=== PATIENT | female | born 1960 | race Caucasian/White ===

== ENCOUNTER → 2018-05-31 15:51 | Outpatient (CLI) | payer OTHER, SELFPAY ==
[2018-06-03 03:07] LABS: QNTFERON TB Mitogen Value > 10.00 IU/mL (.); QNTFERON TB Nil Value 0.05 IU/mL (.); QNTFERON TB1+ Ag Value 0.04 IU/mL (.); QNTFERON TB2+ Ag Value 0.04 IU/mL (.)
[2018-06-05 09:08] LABS: QNTIFERON TB Positive Criteria Negative (Negative)
--- OUTSIDE RECORDS SUMMARY | 2018-08-02 18:32 | XMS RPT_ITS ---
:1960 Author Organization OHIP Care Team Providers Name Role Phone NORBERTO CASTAÑEDA Attending Unavailable Miriam Ladd Attending Unavailable PROVIDER, UNKNOWN Referring Unavailable No, PCP Primary Care Unavailable Bautista Nicole Attending Unavailable PROVIDER, UNKNOWN Referring Unavailable Bautista Nicole Primary Care Unavailable Yareli Gipson Attending Unavailable Yareli Gipson Referring Unavailable Bautista Nicole Primary Care Unavailable Robert Garcia Attending Unavailable PROBLEMS PROBLEMS DATE TYPE CONDITION / CODE ATTENDING STATUS SOURCE 05/31/2018 Unknown M06.09 - Rheumatoid [place], Active [place] arthritis without [facility] rheumatoid factor, [facility] multiple sites / Repository M06.09(ICD-10) 05/31/2018 Unknown Z79.899 - Other long [place], Active [place] term (current) drug [facility] therapy / Hospital Z79.899(ICD-10) Repository 05/31/2018 Unknown M17.0 - Bilateral [place], Active [place] primary [facility] osteoarthritis of Hospital knee / M17.0(ICD-10) Repository 05/31/2018 Unknown M77.12 - Lateral [place], Active [place] epicondylitis, left [facility] elbow / Hospital M77.12(ICD-10) Repository 05/31/2018 Unknown M51.36 - Other [place], Active [place] 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, lumbar Hospital region / Repository M51.36(ICD-10) 11/11/2017 Admitting Other cervical disc [place], Active [facility] Diagnosis disorders, [facility] System unspecified cervical Repository region / M50.80(ICD-10) 11/11/2017 Admitting Spinal stenosis, [place], Active [facility] Diagnosis cervical region / [facility] M48.02(ICD-10) Repository 10/28/2017 Active Radiculopathy, CASTAÑEDA, Active [place] cervical region / [facility] Other M54.12(ICD-10) [place] Repository 10/24/2017 Admitting Pain in left [place], Active [facility] Diagnosis shoulder / [facility] M25.512(ICD-10) Repository 10/24/2017 Admitting Other chronic pain / [place], Active [facility] Diagnosis G89.29(ICD-10) [facility] Repository 10/24/2017 Admitting Elevated [place], Active [facility] Diagnosis blood-pressure [facility] reading, w/o Repository diagnosis of htn / R03.0(ICD-10) 10/24/2017 Admitting Muscle spasm of back [place], Active [facility] Diagnosis / M62.830(ICD-10) [facility] Repository 10/24/2017 Admitting Overexertion from [place], Active [facility] Diagnosis repetitive [facility] movements, initial Repository encounter / X50.3XXA(ICD-10) 10/24/2017 Admitting Allergy status to [place], Active [facility] Diagnosis narcotic agent [facility] status / Repository Z88.5(ICD-10) PROCEDURES PROCEDURES No Procedure Records FoundRESULTS RESULTS QUANTIFERON TB-GOLD+ Collected: 05/31/2018 Status: F Source: [place] 4:05 PM [facility] REPOSITORY TYPE CODE TESTS RESULT OUT OF RANGE REFERENCE UNITS LAB L3400.8025 . Normal QFT TB Comment GOLD Result Comment: The QuantiFERON-TB Gold Plus result is determined by subtracting the Nil value from either TB antigen (Ag) tube. The mitogen tube serves as a control for the test. LAB L3400.8035 . IU/mL Normal QFT TB1+ AG 0.04 [facility] LAB L3400.8045 . IU/mL Normal QFT TB2+ AG 0.04 [facility] LAB L3400.8055 . IU/mL Normal QFT NIL VALUE 0.05 LAB L3400.8065 . IU/mL Normal QFT MITOGEN > 10.00 [facility] LAB L3400.8075 Negative Normal QFT TB POS Negative CRIT Result Comment: The specimen received for QuantiFERON testing was incubated by the ordering institution. Specific procedures outlined in our Directory of Services and in the package insert for the QuantiFERON Gold (In Tube) test must be followed to enable for proper stimulation of cells for the production of interferon gamma. Performed at: - [facility] [id number] Director Of Loss Prevention: Anam Heath PhD, Phone: [phone] Performed By: #### L3400.8000 #### [facility] (refer to report for specific site) refer to report for address and phone number CBC-COMPLETE BLOOD CNT Collected: 12/17/2017 Status: F Source: [place] NO DIFF 8:40 AM [facility] REPOSITORY Order Comment: ROOM 102 TYPE CODE TESTS RESULT OUT OF RANGE REFERENCE UNITS LAB L100.1000 4.4-11.0 K/mm3 High WBC 14.7 LAB L100.1200 4.2-5.4 M/mm3 Normal RBC 4.24 LAB L100.1300 12.0-15.0 g/dl Normal HGB 13.3 LAB L100.1400 37-47 % Normal HCT 40.7 LAB L100.1500 81-99 fL Normal MCV 96.0 LAB L100.1600 27.0-32.0 pg Normal MCH 31.4 LAB L100.1700 32-36 g/gl Normal MCHC 32.7 LAB L100.1810 11.6-14.6 % Normal RDW CV 13.8 LAB L100.1820 35.1-43.9 fl High RDW SD 48.2 LAB L100.1900 150-450 K/mm3 Normal PLT 167 LAB L100.2000 6.2-12.0 fl Normal MPV 11.3 Performed By: #### L100.0500 #### [facility] [address] [place], [address] MRI SPINE CERVICAL Observed: 11/11/2017 Status: F Source: [place] W/O CONTRAST 10:59 AM SYSTEM REPOSITORY Patient Name: SHAUNA POTTS MRI Exam Date/Time 11/11/2017 10:51:20 EDT Exam MRI Spine Cervical w/o Contrast Ordering Physician MD NICOLE STEPHEN B Accession Number [id number] CPT4 Codes 88215 () Reason For Exam Radiculopathy, cervical region Report Examination: MRI cervical spine Clinical Indication: Radiculopathy, cervical region Comparison: None Findings: Multiplanar multisequence MRI images were obtained through the cervical spine without intravenous gadolinium. The cervical spine demonstrates minimal 2 mm degenerative retrolisthesis L2-L3. There is straightening of the normal lordosis. The cervical spine demonstrates grossly normal signal intensity. Vertebral and disc heights appear grossly maintained. There is suggestion of trace increased T2 signal at C2-C3, and C6-C7 concerning for slight developing myelomalacia. Craniocervical and atlantoaxial articulations are within normal limits. C2-C3: There is left paracentral 3 mm disc protrusion with small endplate osteophytes and mild retrolisthesis. Finding causes moderate left-sided cord compression and spinal canal stenosis. Minimal left neural foraminal narrowing from slight uncovertebral hypertrophy. C3-C4: Small right-sided disc bulge with uncovertebral hypertrophy. Right-sided facet hypertrophy. Disc contacts mildly flattening the ventral cord. Mild spinal canal stenosis. Moderate right neural foraminal narrowing. C4-C5: Moderate size posterior disc osteophyte complex with slightly more focal central 3 mm disc protrusion causes moderate cord compression and spinal canal stenosis. Mild neural foraminal narrowing. Slight facet and uncovertebral hypertrophy. C5-C6: Tiny central disc protrusion, 2 mm contacts but does not significantly deform the cord. Mild spinal canal stenosis. Mild neural foraminal narrowing. C6-C7: Left lateral recess 4 mm disc protrusion superimposed on disc bulge and small endplate osteophytes. There is moderate left-sided cord compression with moderate to severe left-sided spinal canal stenosis. Mild left and moderate right neural foraminal narrowing. C7-T1: No gross disc abnormality or spinal canal/neuroforaminal stenosis. Impression: 1. Slight retrolisthesis C2-C3. 2. Moderate discogenic and mild facet hypertrophic degenerative changes with multilevel disc bulge, endplate osteophytes and more focal small to moderate-sized disc herniations on the left C2-C3, centrally at C4-C5 and C5-C6 and on the left C6-C7. Findings cause moderate cord compression C2-C3 and C6-C7 with associated moderate to severe spinal canal stenosis. Multilevel neuroforaminal narrowing as above. Report Dictated on Workstation: [id number] Final Dictated: 11/11/2017 10:59 am Dictating Physician: MD SALMON ANTHONY J Signed Date and Time: 11/11/2017 11:07 am Signed by: MD SALMON ANTHONY J Transcribed Date and Time: 11/11/2017 10:59 ED NOTE Observed: 10/28/2017 Status: COMPLETED Source: [place] 9:30 AM [facility] REPOSITORY HNO ID: [id number] Author: Alessandra (Rn) JUAN ALBERTO Maher Service: (none) Author Type: Registered Nurse Type: ED Notes Filed: 10/28/2017 10:16 AM Note Text: Discharge instructions given via teach back, verbalized good understanding. D/C v/s done. Pt states some pain relief with medication. Home with daughters. EKG Observed: 10/28/2017 Status: F Source: [place] 7:57 AM [facility] OTHER [place] REPOSITORY NAME : SHAUNA POTTS PID : [id number] : 1960 Gender : Female Race : ORD : [id number] Procedure Date : Oct 28 2017 07:57:26 Edit Date : Oct 29 2017 08:51:24 Diagnosis:NORMAL SINUS RHYTHM NORMAL ECG NO PREVIOUS ECGS AVAILABLE Confirmed by PRETTY COSTA D.O. ([id number]) on 10/29/2017 8:51:17 AM Ventricular Rate : 72 BPM Atrial Rate : 72 BPM P-R Interval : 156 ms QRS Duration : 90 ms Q-T Interval : 392 ms QTC Calculation(Bezet) : 429 ms P [place] : 68 degrees R [place] : 44 degrees T [place] : 35 degrees Test Reason : Chest Pain Location : 1 : ER 9 Overread By : PRETTY COSTA D.O. Edited By : PRETTY COSTA D.O. Referred By : , Acquired by : JUANCARLOS HENDRIX Collected: 10/28/2017 Status: F Source: [place] 7:45 AM [facility] REPOSITORY TYPE CODE TESTS RESULT OUT OF RANGE REFERENCE UNITS LAB PSEC 9.7-13.0 sec PT Sec 10.7 LAB INR 0.9-1.3 PT INR 1.0 Result Comment: Vitamin K Antagonist (VKA) Therapeutic Range: INR 2 to 3 (Target INR of 2.5) Note: For patients treated with VKA drugs, such as warfarin, the [place] [employer] 2012 Guideline recommends a therapeutic INR range of 2 to 3 (target INR of 2.5). This recommendation includes high-risk patients with antiphospholipid syndrome with previous arterial or venous thromboembolism, current-generation mechanical or bioprosthetic aortic heart valve replacement. Note: Patients with mechanical aortic valve replacement and additional risk factors for thromboembolic events (atrial fibrillation, previous thromboembolism, LV dysfunction, hypercoagulable conditions) or an older generation mechanical AVR (i.e., ball in-Cage) or any mechanical MVR should have a INR therapeutic range of 2.5 to 3.5 (target INR of 3). Martin GH, et al. Chest 2012, 141:7S-47S Drew RA, et al. JAC 2017, 70: 252-289 Performed By: #### PT, PTT, CBCDIF, CMP, CRP, MG1 #### [facility] [address] [place] [address] APTT Collected: 10/28/2017 Status: F Source: [place] 7:45 AM [facility] REPOSITORY TYPE CODE TESTS RESULT OUT OF RANGE REFERENCE UNITS LAB APTT 23.0-32.4 sec APTT 26.1 Result Comment: Unfractionated Heparin Therapeutic Ranges: Standard Heparin Nomogram: 53 to 78 seconds (anti-Xa level of 0.3 to 0.7 U/ml) Low Dose/ACS Nomogram: 49 to 67 seconds (anti-Xa level of 0.2 to 0.5 U/ml) Stroke Treatment Nomogram: 49 to 67 seconds (anti-Xa level of 0.2 to 0.5 U/ml) Note: The APTT therapeutic range has been determined for the current lot of laboratory APTT reagent in use throughout the [facility]. Performed By: #### PT, PTT, CBCDIF, CMP, CRP, MG1 #### [facility] [address] [place] [address] CBC AND DIFFERENTIAL Collected: 10/28/2017 Status: F Source: [place] 7:45 AM [facility] OTHER CAMPUS REPOSITORY TYPE CODE TESTS RESULT OUT OF REFERENCE UNITS RANGE LAB WBC 3.70-11.00 k/uL WBC 9.80 LAB RBC 3.90-5.20 m/uL RBC 4.45 LAB HGB 11.5-15.5 g/dL Hemoglobin 14.3 LAB HCT 36.0-46.0 % Hematocrit 41.2 LAB MCV 80.0-100.0 fL MCV 92.6 LAB MCH 26.0-34.0 pG MCH 32.1 LAB MCHC 30.5-36.0 g/dL MCHC 34.7 LAB RDWCV 11.5-15.0 % RDW-CV 13.6 LAB PLTCT 150-400 k/uL Platelet Count 275 LAB MPV 9.0-12.7 fL MPV 10.1 LAB ANEUT % Neut% 77.5 LAB AANEUT 1.45-7.50 k/uL Abs Neut High 7.59 LAB ALYMP % Lymph% 14.9 LAB AALYMP 1.00-4.00 k/uL Abs Lymph 1.46 LAB AMONO % [place]% 6.8 LAB AAMONO <0.87 k/uL Abs [place] 0.67 LAB AEOS % Eosin% 0.6 LAB AAEOS <0.46 k/uL Abs Eosin 0.06 LAB ABASO % Baso% 0.2 LAB AABASO <0.11 k/uL Abs Baso <0.03 Performed By: #### PT, PTT, CBCDIF, CMP, CRP, MG1 #### [facility] [address] [place] [address] COMP METABOLIC PANEL Collected: 10/28/2017 Status: F Source: [place] 7:45 AM [facility] [place] REPOSITORY TYPE CODE TESTS RESULT OUT OF REFERENCE UNITS RANGE LAB TP 6.3-8.0 g/dL Protein, Total 7.3 LAB ALB 3.9-4.9 g/dL Albumin 4.3 LAB CA 8.5-10.2 mg/dL Calcium, Total 9.7 LAB TBIL 0.2-1.3 mg/dL Bilirubin, High Total 1.6 LAB ALKP 32-117 U/L Alkaline Phosphatase 65 LAB AST 13-35 U/L AST 17 LAB GLU 74-99 mg/dL Glucose 84 Result Comment: The [place] Diabetes Association (ADA) provides guidance for cutoff values for fasting glucose and random glucose. The ADA defines fasting as no caloric intake for at least 8 hours. Fas ting plasma glucose results between 100 to 125 mg/dL indicate increased risk for diabetes (prediabetes). Fasting plasma glucose results greater than or equal to 126 mg/dL meet the criteria for diagnosis of diabetes. In the absence of unequivocal hyperglycemia, results should be confirmed by repeat testing. In a patient with classic symptoms of hyperglycemia or hyperglycemic crisis, random plasma glucose results greater than or equal to 200 mg/dL meet the criteria for diagnosis of diabetes. Reference: Standards of Medical Care in Diabetes 2016, [place] [employer] Association. Diabetes Care. 2016.39(Suppl 1). LAB BUN 7-21 mg/dL BUN 18 LAB CRET 0.58-0.96 mg/dL Creatinine 0.81 LAB NA 136-144 mmol/L Sodium 141 LAB K 3.7-5.1 mmol/L Potassium 3.7 LAB CL 97-105 mmol/L Chloride 104 LAB CO2 22-30 mmol/L CO2 Low 21 LAB AGAP 9-18 mmol/L Anion Gap 16 LAB ALT 7-38 U/L ALT 25 LAB GFRAA eGFR- Amer. >60 LAB GFRNAA . eGFR-All Other Races >60 Result Comment: eGFR (Estimated GFR) Units of measure: mL/min/1.73 meters squared eGFR is derived from the reexpressed MDRD Study equation using the following parameters: serum creatinine, age, gender and race. The creatinine assay has been calibrated to be traceable to IDMS. An eGFR <60 mL/min/1.73m2 for >3 months is consistent with chronic kidney disease. Refer to KDOQI guidelines for clinical interpretation. In patients with unstable renal function, e.g. those with acute kidney injury, the eGFR may not accurately reflect actual GFR. Performed By: #### PT, PTT, CBCDIF, CMP, CRP, MG1 #### [facility] [address] [facility] [phone] C-REACTIVE PROTEIN Collected: 10/28/2017 Status: F Source: [place] 7:45 AM CLINIC OTHER CAMPUS REPOSITORY TYPE CODE TESTS RESULT OUT OF REFERENCE UNITS RANGE LAB CRP <0.9 mg/dL C-Reactive 0.2 Protein Performed By: #### PT, PTT, CBCDIF, CMP, CRP, MG1 #### [facility] [address] [place] [address] MAGNESIUM Collected: 10/28/2017 Status: F Source: [place] 7:45 AM [facility] OTHER [place] REPOSITORY TYPE CODE TESTS RESULT OUT OF REFERENCE UNITS RANGE LAB MG 1.7-2.3 mg/dL Magnesium 2.0 Performed By: #### PT, PTT, CBCDIF, CMP, CRP, MG1 #### [facility] [address] [place] [address] TROPONIN T Collected: 10/28/2017 Status: F Source: [place] 7:45 AM [facility] REPOSITORY TYPE CODE TESTS RESULT OUT OF REFERENCE UNITS RANGE LAB TROPT 0.000-0.029 ng/mL Troponin T <0.010 Performed By: #### MAGDI #### [facility] [address] [place] [address] CK, TOTAL AND CKMB Collected: 10/28/2017 Status: F Source: [place] 7:45 AM [facility] REPOSITORY TYPE CODE TESTS RESULT OUT OF REFERENCE UNITS RANGE LAB CK 42-196 U/L CK 106 LAB MB <4.3 ng/mL MB 2.0 LAB CKMBRI 0.0-4.0 % CK MB % 1.9 Performed By: #### CKCKMB #### [facility] [address] [place] [address] XR CHEST 1V FRONTAL Observed: 10/28/2017 Status: F Source: [facility] 7:42 AM [facility] OTHER CAMPUS REPOSITORY * * *Final Report* * * DATE OF EXAM: Oct 28 2017 7:42AM MDX [id number] - XR CHEST 1V FRONTAL PORT / PROCEDURE REASON: Chest pain or SOB, pleurisy or effusion suspected * * * * Physician Interpretation * * * * EXAMINATION: CHEST RADIOGRAPH (PORTABLE SINGLE VIEW AP) Exam Date/Time: 10/28/2017 7:42 AM Clinical History: Chest pain or SOB, pleurisy or effusion suspected M: XCP_4 Comparison: None RESULT: IMPRESSION: 1. Lines, Tubes, and Devices: None 2. Lungs and Pleura: The lungs are clear. No infiltrates, nodules or pleural effusions are seen. 3. Cardiomediastinal silhouette: Heart size within normal limits. Pulmonary vascularity is unremarkable. 4. Other: Bony structures unremarkable. Tree Marker: PSCB Transcribe Date/Time: Oct 28 2017 8:15A Dictated by : NILESH YANEZ DO This examination was interpreted and the report reviewed and electronically signed by: NILESH YANEZ DO on Oct 28 2017 8:15AM EST [id number] CT CERVICAL SPINE WO Observed: 10/28/2017 Status: F Source: [place] IVCON 7:37 AM CLINIC OTHER CAMPUS REPOSITORY * * *Final Report* * * DATE OF EXAM: Oct 28 2017 7:37AM [facility] [place] CERVICAL SPINE WO IVCON / PROCEDURE REASON: Spine infection * * * * Physician Interpretation * * * * EXAMINATION: CT CERVICAL SPINE WO IVCON CLINICAL HISTORY: Spine infection Left head, neck, and shoulder pain. TECHNIQUE: CT of the cervical spine without IV contrast. Spiral, high resolution axial images were obtained from the skull base to the cervicothoracic junction with sagittal and coronal planar reconstructions. MQ: [id number] CT Dose-Length Product (DLP): 426 mGy*cm CT Dose Reduction Employed: No dose reduction techniques were required COMPARISON: None. RESULT: Counting reference: Craniocervical junction. Alignment: Grade 1 degenerative anterolisthesis of C3 on C4. Alignment is otherwise anatomic. Craniocervical junction: Craniocervical junction is normal. Osseous structures/fracture: No evidence of a lytic or blastic process in the visualized spine. No evidence of acute or chronic fracture. Cervical soft tissues: The paraspinal soft tissues are within normal limits. Degenerative changes: C2-C3: There is disc degeneration with disc osteophyte complex, uncovertebral spurring, and facet arthropathy causing mild to moderate canal narrowing without significant foraminal stenosis. C3-C4: There is disc degeneration with disc osteophyte complex, uncovertebral spurring, and facet arthropathy causing mild to moderate canal narrowing and mild right foraminal stenosis. C4-C5: There is disc degeneration with disc osteophyte complex, uncovertebral spurring, and facet arthropathy causing moderate canal narrowing without significant foraminal stenosis. C5-C6: There is disc degeneration with disc osteophyte complex, uncovertebral spurring, and facet arthropathy causing mild canal narrowing without significant foraminal stenosis. C6-C7: There is disc degeneration with disc osteophyte complex, uncovertebral spurring, and facet arthropathy causing mild canal narrowing and mild right foraminal stenosis. C7-T1: Canal and foramina are patent. Note that MRI has increased sensitivity for detection of spinal cord/canal or ligamentous pathology. IMPRESSION: No acute cervical spinal fracture or traumatic subluxation. No evidence for spondylodiscitis by noncontrast CT. Multilevel spondylosis as described. Tree Marker: MANPREET Transcribe Date/Time: Oct 28 2017 8:13A Dictated by : DWAIN FELICIANO MD This examination was interpreted and the report reviewed and electronically signed by: DWAIN FELICIANO MD on Oct 28 2017 8:16AM EST [id number] ED PROV NOTE Observed: 10/28/2017 Status: COMPLETED Source: [place] 7:22 AM CLINIC OTHER CAMPUS REPOSITORY HNO ID: [id number] Author: Norberto Castañeda MD Service: (none) Author Type: Physician Type: ED Provider Notes Filed: 10/28/2017 8:54 AM Note Text: ED Provider Note Patient Name: Shauna Potts SERVICE DATE: 10/28/17 History Patient presents with: Arm Pain: left sided, for 1 week Ms. Potts is a pleasant 57 yo F never smoker with a history of rheumatoid arthritis, no history of hypertension or hyperlipidemia or diabetes, immunosuppression including methotrexate, now presenting with left-sided posterior thoracic discomfort near the midline over the last 2 weeks, radiating to her left hand and up into her neck. She doesn't remember having had similar discomfort previously. She is beginning to have some numbness in her left fourth and fifth fingers, more so than her third finger, as well as some weakness in that area. She has had some left axillary/chest discomfort, but no trouble breathing or nausea or radiation to her right neck or right arm. No fevers or chills or cough. She thought maybe she injured a disc, and she was seen already at a different emergency department, where they started some ibuprofen. That hasn't really helped. She denies any suicidal or homicidal thoughts, but is quite stressed because of this discomfort. Certainly, things are worse when she moves. Things got gradually worse over. Of weeks. She didn't have a sudden onset of pain. PAST MEDICAL HISTORY Diagnosis Date - Rheumatoid arthritis(714.0) PAST SURGICAL HISTORY Procedure Laterality Date - BACK SURGERY HX 2008 - CARPAL TUNNEL 1995 FAMILY HISTORY Problem Relation Age of Onset - Diabetes Mother 40 - Diabetes Sister 40 - Hypertension Sister - Stroke Sister - Coronary Artery Disease Father - Hypertension Father - Hypertension Brother - Stroke Brother - Cancer Paternal Aunt pancreatic - Cancer Paternal Uncle prostate Social History Social History Main Topics - Smoking status: Never Smoker - Smokeless tobacco: Never Used - Alcohol use No Comment: rarely once a year - Drug use: No - Sexual activity: No ALLERGIES Allergen Reactions - Hydrocodone GI Upset Review of Systems Constitutional: Negative for chills and fever. HENT: Negative for ear pain, rhinorrhea and sore throat. Respiratory: Negative for cough and shortness of breath. Cardiovascular: Positive for chest pain. Negative for leg swelling. Gastrointestinal: Negative for abdominal pain, diarrhea, nausea and vomiting. Genitourinary: Negative for dysuria, flank pain, frequency and hematuria. Musculoskeletal: Positive for arthralgias, myalgias and neck pain. Negative for back pain. Skin: Negative for rash. Neurological: Negative for speech difficulty, weakness, light-headedness, numbness and headaches. Psychiatric/Behavioral: Negative for hallucinations and suicidal ideas. Physical Exam BP 177/96 Pulse 103 Temp (Src) 98.1 (Oral) Resp 22 Ht 5' 7 (1.70m) Wt 180 lb (81.6kg) SpO2 100% BMI 28.19 kg/(m2). Physical Exam Constitutional: She is oriented to person, place, and time. She appears well-developed and well-nourished. Uncomfortable, keeps moving L shoulder/neck HENT: Head: Normocephalic and atraumatic. Mouth/Throat: No oropharyngeal exudate. No intraoral lesion/fullness Eyes: Pupils are equal, round, and reactive to light. Neck: Normal range of motion. Neck supple. No tracheal deviation present. No LAD or swelling/mass Cardiovascular: Normal rate and intact distal pulses. Exam reveals no gallop and no friction rub. No murmur heard. Pulmonary/Chest: Effort normal and breath sounds normal. No respiratory distress. She has no wheezes. She has no rales. Abdominal: Soft. She exhibits no distension. Musculoskeletal: Normal range of motion. She exhibits no edema. L rhomboid/lower trapezius is the area where there is spasm, no focal C spine injury/pain, mildly weaker left florist designer than right, mildly decreased sensation and C7 and C8 on the left Lymphadenopathy: She has no cervical adenopathy. Neurological: She is alert and oriented to person, place, and time. No cranial nerve deficit. She exhibits normal muscle tone. Skin: Skin is warm and dry. No erythema. Psychiatric: She has a normal mood and affect. Her behavior is normal. Judgment and thought content normal. Nursing note and vitals reviewed. Diagnostic Testing ED Labs Ordered and Reviewed - No data to display Procedures Medical Decision Making MDM Course: Vital signs were reviewed. Triage records were reviewed. Medical records were reviewed. Nursing notes were reviewed and incorporated. The following medications were administered: Toradol ECG reviewed and interpreted as below Labs reviewed and interpreted as below. Radiographs were reviewed as below. Medical Decision Making: Differential diagnosis: Cervical radiculopathy, less likely Mass or obvious cervical cord compression, but checking CT, ACS unlikely but checking ECG and enzymes, pneumothorax, pneumonia, electrolyte disarray, anemia, clinically not consistent with PE as gradual progression of symptoms, other causes of similar symptoms, less likely neck infection, but checking CT. Assessment and plan: Ms. Potts is a pleasant 57-year-old female presenting today with left-sided neck discomfort radiating down her arm. We will give her Toradol and likely prednisone, having assured ourselves with a white blood count and CRP and CT that she is not feeling with a serious infection. We will reassess clinically. Negative w/u aside from HCO3 low (likely chronic compensation for resp alkalosis from stress/discomfort), WBC and CRP ok, CT degenerative changes diffusely, c/w likely cervical radiculopathy. She feels much better, will return if worse, will do steroids, try valium as needed. The attending who evaluated and managed this patient was Norberto Castañeda . Plan: The patient was discharged home with verbal and written instructions. They were instructed to return as needed for persistent or worsening symptoms or any new concerns. Consent: A procedure or transfusion was performed - No Norberto Castañeda MD ED Course / Clinical Impression ED Course as of Oct 28 0852 Norberto Castañeda's Documentation TueOct 28, 2017 0807 ECG NSR @ 72 bpm no STEMI normal intervals and axis Clinical Impressions as of Oct 28 0852 Cervical radiculopathy Plan SIGNATURE: MD Norberto Carroll MD 10/28/17 0854 ED NOTE Observed: 10/28/2017 Status: COMPLETED Source: [place] 6:38 AM CLINIC OTHER CAMPUS REPOSITORY HNO ID: [id number] Author: Yessica (Rn) JUAN ALBERTO Alonso Service: (none) Author Type: Registered Nurse Type: ED Notes Filed: 10/28/2017 6:39 AM Note Text: Pt presents to the ED with CC of left sided arm pain, states it's been going on for a week and hasn't been getting any better. States she went to [facility] ED on Tuesday and was prescribed 600mg of motrin and a muscle relaxant. States she has also been taking her arthritis medication and using icy hot with no relief CR SHOULDER 2+ VIEWS Observed: 10/24/2017 Status: F Source: [facility] 6:28 PM SYSTEM REPOSITORY Patient Name: SHAUNA POTTS Diagnostic Radiology Exam Date/Time 10/24/2017 18:14:00 EDT Exam CR Shoulder 2+ Views Left Ordering Physician DO LADD KIMBERLY D. Accession Number [id number] CPT4 Codes 65650 () Reason For Exam 8-9 months of progressive pain in the left shoulder, no injury, left hand dominant Report LEFT SHOULDER THREE VIEWS CLINICAL INDICATION: 8-9 months of progressive pain in the left shoulder, no injury, left hand dominant TECHNIQUE: Three views of the left shoulder. COMPARISON: 6 FINDINGS: Normal AC joint, glenohumeral joint, and subacromial space. No acute fracture or dislocation. IMPRESSION: 1. No significant finding. Report Dictated on Final Dictated: 10/24/2017 6:28 pm Dictating Physician: MD MARTINEZ JOHN R Signed Date and Time: 10/24/2017 6:28 pm Signed by: MD MARTINEZ JOHN R Transcribed Date and Time: 10/24/2017 6:28 ALLERGIES ALLERGIES DATE TYPE / CODE NAME / CODE REACTION SEVERITY SOURCE 03/27/2014 DRUG HYDROCODONE GI UPSET [facility] INGREDI/419 Other [place] [address](SNOM Repository ED CT) ENCOUNTERS ENCOUNTERS ADMIT/DISCHARGE ACCOUNT NUMBER ADMITTING ENCOUNTER LOCATION SOURCE CLASS 05/31/2018 [id number] Ambulatory [facility] ding:MTLAB Repository 12/17/2017 [id number] Ambulatory [facility] ding:OLS.ACW Repository 200 11/11/[id number] [facility] Repository 10/28/2017/10/29/19 [id number] Emergency [address] Other [place] Repository 10/24/[id number] EMRoom: System 1DEMRBed: Repository [id number] PAYERS PAYERS ENCOUNTER GUARANTOR PAYER SUBSCRIBER SOURCE 05/31/2018 SHAUNA Ruiz Primary SHAUNA Ruiz [place] [id number] Insurance:[facility] [place]: [id number] [id number] Repository [address]Uui: [phone]) Date:[phone] () [address], [place] [address]CF: 05/31/2018 Secondary NOT GIVENUNK [place] Insurance:SELF PAY [facility] Number: Effective Repository Date:2018-05-31 12/17/2017 Shauna Primary NOT GIVENUNK [place] [id number] Insurance:SELF PAY [place], [place] Number: Effective Repository [id number]: ([phone]) Date:2017-12-17 [phone] () 11/11/2017 Shauna M Primary Shauna Ruiz [place] McBoydzieDOB: Insurance:[employer] MotionloftInaeDOB: System [id number] licy Number: [id number] [facility] Effective Date: [place] [address] 10/24/2017 Shauna M Primary Shauna Ruiz [place] McKenzieDOB: Insurance:[employer] MotionloftKenzieDOB: System [id number] licy Number: [id number] Ad[facility] Effective Date: [place], [place] [address]Zys: ()
--- OUTSIDE RECORDS SUMMARY | 2018-08-02 18:32 | XMS RPT_ITS ---
:1960 Author Organization [employer] [address] [address] [place] [address] Phone Care Team Providers Name Role Phone Kemar BUITRAGO, Drew Ruiz Unavailable Reason for Visit Reason For Visit Description Start Date Postop - subsequent visit Preliminary reason for visit data, not yet signed by the author as of neck post Posterior Laminectomy and Fusion C2-7 on 12/07/2017 Preliminary reason for visit data, not yet signed by the author as of Chief Complaint Chief Complaint Description Start Date neck post Posterior Laminectomy and Fusion C2-7 on 12/07/2017 Preliminary chief complaint data, not yet signed by the author as of Instructions Instruction Description Start Date CompletedPatient advised to follow-up with Primary Care Physician for BMI management. Plan of Care Type Date Detail Appointment 10:10 AM Drew Reinoso MD, [address] [facility].[address] [place] [address], [address], Patient education \cps-sql1\CPS_PtEducation\htn. pdf, Medications Medications Medication Instructions Start Stop Generic Name NDC Provider Date Date MOBIC 15 MG one a day / MELOXICAM 67190846955 Drew Ruiz TABS 10 Kemar BUITRAGO METHOTREXATE 8 tablets once / METHOTREXATE [id number] Michelle 2.5 MG TABS a week 10 SODIUM D'Anneliese PA-C FOLIC ACID 1 MG two tablets a / FOLIC ACID 64454580337 Drew Ruiz TABS day 09 Kemar BUITRAGO XELJANZ XR 11 one tablet a / TOFACITINIB [id number] Drew Ruiz MG [id number] day CITRATE Kemar BUITRAGO Conditions or Problems Problem Problem Code Onset Status Entry Provider Comment Standard Annotate Name Date Date Description S/P 764028625292 Active Michelle History of Laminectomy cervical 1 (SNOMED 12/30 12/30 D'Anneliese cervical spine and fusion spinal CT) PA-C fusion C2-7, C2 fusion instrumenati on right side only Foraminal 951451949044 Active Drew Ruiz 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 Vital Signs Date Name Value Unit Description BMI (Body Mass 28.72 kg/m2 Body Mass Index Index) [Ratio] Preliminary vital sign data, not yet signed by the author as of BP Diastolic 90 mm[Hg] blood pressure, diastolic Preliminary vital sign data, not yet signed by the author as of BP Diastolic 86 mm[Hg] blood pressure, diastolic, second observation Preliminary vital sign data, not yet signed by the author as of BP Systolic 153 mm[Hg] blood pressure, systolic Preliminary vital sign data, not yet signed by the author as of BP Systolic 157 mm[Hg] blood pressure, systolic, second observation Preliminary vital sign data, not yet signed by the author as of Heart Rate 84 /min pulse rate E&M Preliminary vital sign data, not yet signed by the author as of Height 66.675921 [in_us] height E&M Preliminary vital sign data, not yet signed by the author as of Height 169 cm height in centimeters E&M Preliminary vital sign data, not yet signed by the author as of Weight Measured 180 [lb_av] weight E&M Preliminary vital sign data, not yet signed by the author as of Weight Measured 82 kg weight in kilograms E&M Preliminary vital sign data, not yet signed by the author as of Results Date Name Value Unit Range Flag Description Office Visit: Postop - subsequent visit, Rm: 20 MEDS REVIEW Done Documentation of current medications (procedure) Preliminary observation data, not yet signed by the author as of Preliminary observation data, not yet signed by the author as of Clinical Summary: HMSPatientID OOP account number Procedures Code Procedure Name Date Entry Date CPT-57039 XR CERVICAL 2-3 VWS AP/LAT G8730 Pain assessment documented as positive - follow-up documented G8427 Current medications documented 1036F Tobacco screening was negative - non user G8417 BMI documented as above normal parameters - follow-up documented G8952 Blood pressure outside of normal parameters - follow-up not documented [facility]-[id number] Patient Encounter Medications Administered No information available. Immunizations No information available. Advance Directives There may be information available, but it has not been provided by the sender. Assessments There may be information available, but it has not been provided by the sender. Review of Systems There may be information available, but it has not been provided by the sender. Family History There may be information available, but it has not been provided by the sender. History of Past Illness There may be information available, but it has not been provided by the sender. History of Present Illness There may be information available, but it has not been provided by the sender.
--- OUTSIDE RECORDS SUMMARY | 2018-08-02 18:32 | XMS RPT_ITS ---
:1960 Author Organization [employer] Address [address] [place] [address] Phone Care Team Providers Name Role Phone Michelle Hills PA-C Unavailable Reason for Visit Reason For Visit Description Start Date Postop - 1st visit Preliminary reason for visit data, not yet signed by the author as of lower back post Posterior Laminectomy and Fusion C2-7 on 12/07/2017 Preliminary reason for visit data, not yet signed by the author as of Chief Complaint Chief Complaint Description Start Date lower back post Posterior Laminectomy and Fusion C2-7 on 12/07/2017 Preliminary chief complaint data, not yet signed by the author as of Instructions Instruction Description Start Date CompletedPatient advised to follow-up with Primary Care Physician for BMI management. Plan of Care Type Date Detail Appointment 10:10 AM Drew Reinoso MD, [address] [facility], [place], [address], Medications Medication Instructions Start Stop Generic Name NDC Provider Date Date FOLIC ACID 1 two tablets a FOLIC ACID [id number] Drew M MG TABS day 9 Kemar BUITRAGO XELJANZ XR 11 one tablet a day TOFACITINIB 28446366064 Drew M MG [id number] CITRATE Kemar BUITRAGO Conditions or Problems Problem Problem Code Onset Status Entry Provider Comment Standard Annotate Name Date Date Description S/P 992226375176 Active Michelle History of Laminectomy cervical 1 (SNOMED 12/30 12/30 D'Anneliese cervical spine and fusion spinal CT) PA-C fusion C2-7, C2 fusion instrumenati on right side only Foraminal 030806450991 Active Drew M 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 Vital Signs Date Name Value Unit Description BMI (Body Mass 26.56 kg/m2 Body Mass Index Index) [Ratio] Preliminary vital sign data, not yet signed by the author as of BP Diastolic 81 mm[Hg] blood pressure, diastolic Preliminary vital sign data, not yet signed by the author as of BP Systolic 131 mm[Hg] blood pressure, systolic Preliminary vital sign data, not yet signed by the author as of Heart Rate 109 /min pulse rate E&M Preliminary vital sign data, not yet signed by the author as of Height 67 [in_us] height E&M Preliminary vital sign data, not yet signed by the author as of Height 170 cm height in centimeters E&M Preliminary vital sign data, not yet signed by the author as of Weight Measured 169 [lb_av] weight E&M Preliminary vital sign data, not yet signed by the author as of Weight Measured 77 kg weight in kilograms E&M Preliminary vital sign data, not yet signed by the author as of Results Date Name Value Unit Range Flag Description Office Visit: Postop - 1st visit, Rm: 6 MEDS REVIEW Done Documentation of current medications (procedure) Preliminary observation data, not yet signed by the author as of Preliminary observation data, not yet signed by the author as of Clinical Summary: HMSPatientID OOP account number Procedures Code Procedure Name Date Entry Date L0120 SOFT CERVICAL COLLAR (2 - 2 05/10)(PROCARE) G8730 Pain assessment documented as positive - follow-up documented G8427 Current medications documented 1036F Tobacco screening was negative - non user G8417 BMI documented as above normal parameters - follow-up documented G8783 Blood pressure within normal parameters - no follow-up required [facility]-[id number] Patient Encounter Medications Administered No information available. [...]
== END ==
PROVIDERS: Family Provider Family Medicine; PCP Family Medicine; Referring Provider Internal Medicine Rheumatology; Visit Provider Internal Medicine Rheumatology
DX: M06.09 Rheumatoid arthritis without rheumatoid factor, multiple sites (principal); M17.0 Bilateral primary osteoarthritis of knee; M77.12 Lateral epicondylitis, left elbow; M51.36 Other intervertebral disc degeneration, lumbar region; Z79.899 Other long term (current) drug therapy
CPT/HCPCS: 36415; 86480